=== PATIENT | female | born 1975 | race Two or more races ===

== ENCOUNTER 2017-11-01 11:59 | Emergency (ER) | payer OTHER ==
[~2017-11-01] VITALS: Ht 152.4 cm; Wt 53.5 kg
[~2017-11-01 11:59] MED LIST: WOMEN'S DAILY1 EACH
== END 2017-11-01 14:59 | disposition home or self-care (01) ==
LOC: ER 11:59
DX: N39.0 Urinary tract infection, site not specified (principal)

== ENCOUNTER 2018-01-06 11:00 | Outpatient (CLI) | payer OTHER | END 2018-01-06 11:09 | disposition home or self-care (01) | LOC: LAB 11:00 | DX: N30.00 Acute cystitis without hematuria (principal) ==

== ENCOUNTER 2018-03-31 12:53 | Outpatient (CLI) | payer OTHER | END 2018-03-31 13:02 | disposition home or self-care (01) | LOC: LAB 12:53 | DX: N30.00 Acute cystitis without hematuria (principal) ==

== ENCOUNTER 2018-04-07 08:39 | Outpatient (CLI) | payer OTHER | END 2018-04-07 08:50 | disposition home or self-care (01) | LOC: LAB 08:39 | DX: R10.84 Generalized abdominal pain (principal); N39.0 Urinary tract infection, site not specified ==

== ENCOUNTER 2018-05-22 16:17 | Outpatient (CLI) | payer OTHER | END 2018-05-22 16:31 | disposition home or self-care (01) | LOC: LAB 16:17 | DX: N30.00 Acute cystitis without hematuria (principal) ==

== ENCOUNTER → 2018-08-04 09:19 | Outpatient (CLI) | payer OTHER | END | disposition home or self-care (01) | LOC: LAB 09:19 | DX: N30.00 Acute cystitis without hematuria (principal) ==

== ENCOUNTER 2018-10-01 09:45 | Outpatient (CLI) | payer OTHER | END 2018-10-01 09:54 | disposition home or self-care (01) | LOC: LAB 09:45 | DX: N30.00 Acute cystitis without hematuria (principal) ==

== ENCOUNTER → 2018-11-17 18:07 | Outpatient (CLI) | payer OTHER | END | disposition home or self-care (01) | LOC: LAB 15:56 | DX: D50.8 Other iron deficiency anemias (principal); E83.51 Hypocalcemia; E78.00 Pure hypercholesterolemia, unspecified; E03.8 Other specified hypothyroidism; N39.0 Urinary tract infection, site not specified; D63.8 Anemia in other chronic diseases classified elsewhere; M81.0 Age-related osteoporosis without current pathological fracture; D64.89 Other specified anemias ==

== ENCOUNTER → 2018-11-17 | Outpatient (CLI) | payer OTHER | END | disposition home or self-care (01) | LOC: MAMO-SONO 10-14 08:45 | DX: Z12.31 Encounter for screening mammogram for malignant neoplasm of breast (principal); N63.31 Unspecified lump in axillary tail of the right breast; N63.32 Unspecified lump in axillary tail of the left breast; D25.9 Leiomyoma of uterus, unspecified ==

== ENCOUNTER → 2019-02-07 11:05 | Outpatient (CLI) | payer OTHER | END | disposition home or self-care (01) | LOC: LAB 11:05 | DX: N30.00 Acute cystitis without hematuria (principal); R10.84 Generalized abdominal pain; B96.29 Other Escherichia coli [E. coli] as the cause of diseases classified elsewhere ==

== ENCOUNTER 2019-03-02 13:18 | Outpatient (CLI) | payer OTHER | END 2019-03-02 13:26 | disposition home or self-care (01) | LOC: LAB 13:18 | DX: N30.00 Acute cystitis without hematuria (principal) ==

== ENCOUNTER 2019-06-07 09:08 | Outpatient (CLI) | payer OTHER | END 2019-06-07 09:14 | disposition home or self-care (01) | LOC: SONOGRAMA 09:08 | DX: R10.84 Generalized abdominal pain (principal) ==

== ENCOUNTER → 2019-08-20 12:41 | Outpatient (CLI) | payer OTHER | END | disposition home or self-care (01) | LOC: LAB 12:41 | DX: N30.00 Acute cystitis without hematuria (principal) ==

== ENCOUNTER 2019-09-11 09:28 | Outpatient (CLI) | payer OTHER | END 2019-09-11 09:44 | disposition home or self-care (01) | LOC: LAB 09:28 | DX: D64.89 Other specified anemias (principal); Z12.11 Encounter for screening for malignant neoplasm of colon; E03.8 Other specified hypothyroidism; N95.1 Menopausal and female climacteric states; I10 Essential (primary) hypertension; C51.8 Malignant neoplasm of overlapping sites of vulva; A64 Unspecified sexually transmitted disease; N39.0 Urinary tract infection, site not specified; R97.8 Other abnormal tumor markers; R79.89 Other specified abnormal findings of blood chemistry; E55.9 Vitamin D deficiency, unspecified; Z11.4 Encounter for screening for human immunodeficiency virus [HIV] ==

== ENCOUNTER 2019-12-08 09:10 | Outpatient (CLI) | payer OTHER | END 2019-12-08 09:20 | disposition home or self-care (01) | LOC: LAB 09:10 | DX: M54.5 Low back pain (principal); I10 Essential (primary) hypertension; Z01.810 Encounter for preprocedural cardiovascular examination; E03.8 Other specified hypothyroidism; E78.89 Other lipoprotein metabolism disorders; D64.89 Other specified anemias; N39.0 Urinary tract infection, site not specified; E11.9 Type 2 diabetes mellitus without complications; E78.00 Pure hypercholesterolemia, unspecified; E55.9 Vitamin D deficiency, unspecified; Z12.11 Encounter for screening for malignant neoplasm of colon; R80.8 Other proteinuria ==

== ENCOUNTER 2020-12-12 12:54 | Outpatient (CLI) | payer OTHER | END 2020-12-12 12:59 | disposition home or self-care (01) | LOC: LAB 12:54 | PROVIDERS: ATTEND Urology | DX: N30.00 Acute cystitis without hematuria (principal) ==

== ENCOUNTER 2022-04-02 16:54 | Outpatient (CLI) | payer OTHER | END 2022-04-02 17:03 | disposition home or self-care (01) | LOC: LAB 16:54 | DX: E03.8 Other specified hypothyroidism (principal); N95.1 Menopausal and female climacteric states ==

== ENCOUNTER 2022-10-08 08:21 | Outpatient (CLI) | payer OTHER | END 2022-10-08 08:31 | disposition home or self-care (01) | LOC: PPH VACUNA 08:21 | PROVIDERS: ATTEND Emergency Medicine Pediatric Emergency Medicine | DX: Z23 Encounter for immunization (principal) ==

== ENCOUNTER 2022-11-29 11:09 | Outpatient (CLI) | payer OTHER | END 2022-11-29 11:18 | disposition home or self-care (01) | LOC: SONOGRAMA 11:09 | PROVIDERS: ATTEND Specialist | DX: D25.9 Leiomyoma of uterus, unspecified (principal) ==

== ENCOUNTER 2024-07-13 14:04 | Outpatient (CLI) | payer OTHER | END 2024-07-13 14:14 | disposition home or self-care (01) | LOC: SONOGRAMA 14:04 | PROVIDERS: ATTEND Specialist | DX: D25.9 Leiomyoma of uterus, unspecified (principal) ==

== ENCOUNTER → 2024-10-31 | Emergency (ER) | payer OTHER ==
[~2024-10-31] VITALS: Ht 162.6 cm; Wt 59.0 kg
[2024-10-31 12:53] VITALS: BP 161/95; O2SAT 99
== END | disposition left against medical advice (07) ==
LOC: ER 12:52
DX: N39.0 Urinary tract infection, site not specified (principal)

== ENCOUNTER 2024-11-05 11:47 | Outpatient (CLI) | payer OTHER ==
[2024-11-05 12:53] LABS: URINE APPEARANCE Cloudy; URINE BILIRRUBIN Negative (NEGATIVE); URINE BLOOD Trace; URINE COLOR Yellow; URINE GLUCOSE Negative (NEGATIVE); URINE KETONE Negative (NEGATIVE); URINE LEUKOCYTE Large; URINE NITRATE Negative; URINE PROTEIN Negative (NEGATIVE); URINE UROBILINOGEN 0.2 E.U./dl
[2024-11-05 12:57] LABS: URINE RBC 2.3 uL (0.0-20.8); URINE WBC 1008.7 uL (0.0-23.2)
[2024-11-05 13:00] LABS: URINE BACTERIA > 9821.5 uL (0.0-1933); URINE EPITHELIAL CELLS 0.3 uL (0.0-38.8)
== END 2024-11-05 11:48 | disposition home or self-care (01) ==
LOC: LAB 11:47
DX: N39.0 Urinary tract infection, site not specified (principal)

== ENCOUNTER 2025-01-15 10:16 | Outpatient (CLI) | payer OTHER | END 2025-01-15 10:24 | disposition home or self-care (01) | LOC: LAB 10:16 | DX: N39.0 Urinary tract infection, site not specified (principal) ==

== ENCOUNTER 2025-06-24 11:57 | Emergency (ER) | payer OTHER ==
[~2025-06-24] VITALS: Ht 162.6 cm; Wt 59.0 kg
[2025-06-24] MEDS ORDERED: ACETAMINOPHEN 500 MG GEL..CAP PO ONE ×2 (14:45→14:46)
[2025-06-24 15:32] LABS: BASO % 0.2 % (0.1-1.2); EOS # 0.04 (0.04-0.54); EOS % 0.3 % (0.7-7.0); LYMPH # 2.43 (1.18-3.74); LYMPH % 19.7 % (19.3-53.1); MEAN PLATELET VOLUME 10.20 fl (9.4-12.4); MONO # 0.59 (0.24-0.82); MONO % 4.8 % (4.7-12.5); NEUT # 9.19 (1.56-6.13); NEUT % 74.6 % (34.0-71.1); RED CELL DISTRIBUTION WIDTH 13.2 % (11.6-14.4)
[2025-06-24 15:48] LABS: ALT/SGPT 35.0 U/L (12-78); AST/SGOT 27.0 U/L (15-37); BILIRUBIN TOTAL 0.2 mg/dL (0.3-1.2); BUN CREA RATIO 19.0 (7.0-25.0); CREATININE SERUM 0.63 mg/dL (0.55-1.02); GFR 99.62; GLOBULINA 4.1 G/DL (2.4-3.5); GLUCOSE FASTING 102.0 mg/dL (65-100); OSMOLALITY SERUM 281.0 MOSM/KG (275-295)
[2025-06-24 15:49] LABS: URINE APPEARANCE Clear; URINE BILIRRUBIN Negative (NEGATIVE); URINE BLOOD Negative; URINE COLOR Yellow; URINE GLUCOSE Negative (NEGATIVE); URINE KETONE Negative (NEGATIVE); URINE LEUKOCYTE Moderate; URINE NITRATE Negative; URINE PROTEIN Negative (NEGATIVE); URINE UROBILINOGEN 0.2 E.U./dl
[2025-06-24 15:53] LABS: URINE BACTERIA 378.0 uL (0.0-1933); URINE EPITHELIAL CELLS 14.1 uL (0.0-38.8); URINE RBC 2.4 uL (0.0-20.8); URINE WBC 73.0 uL (0.0-23.2)
[2025-06-24 16:05] LABS: COVID-19 AG NEGATIVE (NEGATIVE)
[2025-06-24 16:52] LABS: URINE CAST 0.00 uL (0.0-1.40)
[2025-06-24] MEDS ORDERED: CEFTRIAXONE SODIUM 1,000 MG VIAL IM STA (17:31)
[2025-06-24] MEDS ORDERED: CEFTRIAXONE SODIUM 1,000 MG VIAL ONE (17:40)
== END 2025-06-24 18:09 | disposition home or self-care (01) ==
LOC: ER 11:57
PROVIDERS: Emergency Medicine
DX: N39.0 Urinary tract infection, site not specified (principal); R53.1 Weakness; Z20.822 Contact with and (suspected) exposure to COVID-19